=== PATIENT | male | born 1945 | race Caucasian/White ===

== ENCOUNTER 2017-09-11 16:15 | Emergency (ER) | payer OTHER ==
[2017-09-11] MEDS ORDERED: KETOROLAC TROMETHAMINE 30 MG/1 ML VIAL IM ONE (17:34)
[2017-09-11] MEDS ORDERED: ACETAMINOPHEN 325 MG TABLET (FP) PO ONE (17:35)
[2017-09-11 17:40] VITALS: BP 171/78; PULSE 70; TEMP 97.5; BMI 36.0
--- NOTE | 2017-09-11 17:42 | PDOC ---
History of Present Illness <Tova Damon - Last Filed: 09/11/17 17:35> - General History Source: Patient Exam Limitations: No Limitations - History of Present Illness Initial Comments: 09/11/17 17:42 The patient is a 72 year old male presenting with his son, with a significant past medical history of back surgery (x2), HTN and diabetes, who presents to the emergency department with back pain for 2 days. He describes his back pain as localized in the middle region of the lower back. He notes the pain ranges from mild to moderate, with radiation to the lower extremities. He denies any modifying factors. He describes his lower extremity pain as a weakness sensation. He reports that he took Naproxens yesterday with minimal relief and today he took Aleve with minimal relief. The patient denies chest pain, shortness of breath, headache and dizziness. Denies fever, chills, nausea, vomit, diarrhea and constipation. Denies dysuria, frequency, urgency and hematuria. Allergies: None Past surgical history: back surgery (2010 and 1995) Social history: No alcohol, tobacco or drug use reported <Moody Harris - Last Filed: 09/11/17 17:54> - General Chief Complaint: Back Pain Stated Complaint: BACK PAIN Past History <Tova Damon - Last Filed: 09/11/17 17:35> <Moody Harris - Last Filed: 09/11/17 17:54> - Past Medical History Allergies/Adverse Reactions: Allergies Allergy/AdvReac Type Severity Reaction Status Date / Time No Known Allergies Allergy Verified 09/11/17 17:19 Home Medications: Ambulatory Orders Amlodipine Besylate 10 mg PO DAILY 09/11/17 Azithromycin [Zithromax -] 250 mg PO UTDICT 09/11/17 Carvedilol [Coreg -] 12.5 mg PO DAILY 09/11/17 Cetirizine HCl [Zyrtec -] 10 mg PO DAILY 09/11/17 Cetirizine HCl [Zyrtec -] 10 mg PO DAILY 09/11/17 Cyclobenzaprine HCl 0.5 tab PO DAILY PRN #15 tablet 09/11/17 Diclofenac Sodium [Voltaren] 100 gm TP DAILY 09/11/17 Fluticasone Prop 0.05% Nasal [Flonase -] 1 - 2 spray NS DAILY 09/11/17 Glipizide Xl [Glucotrol Xl -] 10 mg PO DAILY@0700 09/11/17 Hydrochlorothiazide [Hctz -] 25 mg PO DAILY 09/11/17 Ibuprofen [Motrin -] 400 mg PO TID #90 tablet MDD 3 09/11/17 Insulin Detemir [Levemir Flextouch] 25 unit SQ HS 09/11/17 Metformin HCl [Metformin HCl ER] 1,000 mg PO DAILY 09/11/17 Naproxen [Naprosyn -] 375 mg PO BID 09/11/17 Omeprazole 40 mg PO DAILY 09/11/17 Simvastatin [Zocor -] 20 mg PO HS 09/11/17 Valsartan 320 mg PO DAILY 09/11/17 Review of Systems - Review of Systems Able to Perform ROS?: Yes Comments:: 09/11/17 17:45 GENERAL/CONSTITUTIONAL: No fever or chills. No weakness. HEAD, EYES, EARS, NOSE AND THROAT: No change in vision. No ear pain or discharge. No sore throat.- CARDIOVASCULAR: No chest pain or shortness of breath RESPIRATORY: No cough, wheezing, or hemoptysis. GASTROINTESTINAL: No nausea, vomiting, diarrhea or constipation. GENITOURINARY: No dysuria, frequency, or change in urination. MUSCULOSKELETAL: (+) Back pain. No joint or muscle swelling or pain. No neck pain. SKIN: No rash NEUROLOGIC: No headache, vertigo, loss of consciousness, or change in strength/ sensation. ENDOCRINE: No increased thirst. No abnormal weight change HEMATOLOGIC/LYMPHATIC: No anemia, easy bleeding, or history of blood clots. ALLERGIC/IMMUNOLOGIC: No hives or skin allergy. <Moody Harris - Last Filed: 09/11/17 17:54> *Physical Exam - Vital Signs Last Vital Signs Temp Pulse Resp BP Pulse Ox 97.5 F L 70 19 171/78 99 09/11/17 16:47 09/11/17 16:47 09/11/17 16:47 09/11/17 16:47 09/11/17 16:47 - Physical Exam Comments: 09/11/17 17:45 GENERAL: Awake, alert, and fully oriented, in no acute distress HEAD: No signs of trauma, normocephalic, atraumatic EYES: PERRLA, EOMI, sclera anicteric, conjunctiva clear ENT: Auricles normal inspection, hearing grossly normal, nares patent, oropharynx clear without exudates. Moist mucosa NECK: Normal ROM, supple, no lymphadenopathy, JVD, or masses LUNGS: No distress, speaks full sentences, clear to auscultation bilaterally HEART: Regular rate and rhythm, normal S1 and S2, no murmurs, rubs or gallops, peripheral pulses normal and equal bilaterally. ABDOMEN: Soft, nontender, normoactive bowel sounds. No guarding, no rebound. No masses EXTREMITIES : Normal inspection, Normal range of motion, no edema. 5/5 lower extremity strength bilaterally and sensation is intact throughout. No clubbing or cyanosis. MUSCULOSKELETAL: (+) Midline tenderness of the lumbar sacral spine, paraspinal spasms on the right NEUROLOGICAL: Cranial nerves II through XII grossly intact. Normal speech, normal gait, no focal sensorimotor deficits SKIN: Warm, Dry, normal turgor, no rashes or lesions noted. <Moody Harirs - Last Filed: 09/11/17 17:54> ED Treatment Course - RADIOLOGY Radiology Studies Ordered: Category Date Time Status SPINE-LUMBAR ONLY [RAD] Stat Radiology 09/11/17 17:35 Ordered <Tova Damon - Last Filed: 09/11/17 17:35> Medical Decision Making - Medical Decision Making 09/11/17 17:35 72-year-old male here today complaining of low back pain. Patient states he had surgery on his back several years ago been having pain for a few days worse with movement and turning denies new weakness numbness or tingling no bowel or bladder incontinence denies any urinary symptoms eels that there is a sleepy feeling radiating down his right leg no injuries no fevers or chills. On exam awake alert cardiac and lung exam is unremarkable abdomen is soft nontender no CVA tenderness patient has midline spinal tenderness in the lumbosacral area and right paraspinal muscle spasm. Strength in lower extremities is 5 out of 5 hip flexion and extension sensation is intact no medial thigh numbness. Neuro exam is normal throughout lower extremities. Patient has low back strain we'll order x-rays due to the age to rule out compression fracture. Recommend Tylenol anti-inflammatories and a small dose of muscle relaxers as needed recommend follow-up with primary care physician for outpatient physical therapy and possible referral to a patient access specialist or neurologist <Tova Damon - Last Filed: 09/11/17 17:35> *DC/Admit/Observation/Transfer - Discharge Dispostion Admit: No <Tova Damon - Last Filed: 09/11/17 17:35> - Attestations Scribe Attestion: 09/11/17 17:45 Documentation prepared by Moody Harris, acting as medical technologist chief for Tova Damon MD <Moody Harris - Last Filed: 09/11/17 17:54> Diagnosis at time of Disposition: Low back strain - Discharge Dispostion Condition at time of disposition: Improved - Prescriptions Prescriptions: Cyclobenzaprine HCl 0.5 tab PO DAILY PRN #15 tablet PRN Reason: Muscle Spasms Ibuprofen [Motrin -] 400 mg PO TID #90 tablet MDD 3 - Referrals Referrals: Eric Obregon MD [Staff Physician] - - Patient Instructions Printed Discharge Instructions: Back Pain (Alternative Therapy) Additional Instructions: Take Flexeril 2.5 mg or one half tablet every 8 hours as needed for muscle spasm. Do not mix with alcohol and do not drive after taking this medication is best be taken at night as a comedic is slightly sleepy. Take Tylenol 500 mg every 6 hours as needed for pain. Take Motrin 400 mg every 8 hours as needed for pain. He should follow-up with your regular doctor Dr. Nunn, call to schedule to be seen within the next week at that time he can discuss outpatient physical therapy referral and referral to a specialist. He can also follow up with a neurologist dr obregon call to schedule persistent pain
[2017-09-11] MEDS ORDERED: KETOROLAC TROMETHAMINE 30 MG/1 ML VIAL ONE (17:47)
[2017-09-11] MEDS ORDERED: ACETAMINOPHEN 325 MG TABLET (FP) ONE (17:47)
== END 2017-09-11 19:22 | disposition home or self-care (01) ==
LOC: FER 16:15
PROC: 3E0233Z Introduction of Anti-inflammatory into Muscle, Percutaneous Approach (ICD-10-PCS; principal; 2017-09-11)
DX: S39.012A Strain of muscle, fascia and tendon of lower back, initial encounter (principal); X58.XXXA Exposure to other specified factors, initial encounter; Y93.89 Activity, other specified; Y92.9 Unspecified place or not applicable
CPT/HCPCS: 72100-TC; 96372; 99282-25